=== PATIENT | male | born 1950 | race Caucasian/White ===

== ENCOUNTER 2022-04-12 01:07 | Day surgery (SDC) | payer OTHER, SELFPAY ==
[2022-04-01 14:27] VITALS: BMI 25.9
[2022-04-12 13:04] VITALS: BP 169/76; PULSE 88; RESP 18; TEMP 36.2; O2SAT 98
[2022-04-12] MEDS: LACTATED RINGERS 1,000 ML 150 ML IV CONT (13:07)
[2022-04-12 13:13] LABS: Glucose Point of Care 118 mg/dl (65-105)
--- NOTE | 2022-04-12 13:28 | PM.HPGS ---
History of Present Illness History of Present Illness Consent: Risks, benefits, and alternatives have been discussed and questions answered. Patient agrees to proceed with procedure. Chief complaint: Neoplasm Screening Narrative: Kana Garza is a 72 year old male here for first screening colonoscopy Review of Systems Constitutional: Constitutional: Denies headache(s) and Denies weakness Eyes: Eyes: Denies blurry vision ENT: Reports Normal hearing present, Denies headache(s) and Denies neck pain Cardiovascular: Cardiovascular: Denies chest pain and Denies dyspnea Respiratory: Respiratory: Denies dyspnea Gastrointestinal: Gastrointestinal: Reports no additional gastrointestinal complaints Genitourinary: Genitourinary: Denies dysuria Musculoskeletal: Musculoskeletal: Denies neck pain Integumentary/Breasts: Skin/Breast: Denies dry skin Neurologic: Reports Normal hearing present, Denies headache(s) and Denies weakness Psychiatric: Psychiatric: Denies anxiety Endocrine: Endocrine: Denies change in body appearance Hematologic/Lymphatic: Hematologic/Lymphatic: Denies easy bleeding Allergic/Immunologic: Allergic/Immunologic: Denies urticaria PMF Past Medical History Medical History (Updated 01/23/22 @ 08:45 by Oksana Vance NP) Colon cancer screening Diabetes Elevated fasting glucose Encounter to establish care Hyperlipidemia Hypertension Nocturia Family History Family History (Updated 01/15/22 @ 14:13 by Chloe Reaves MA) Mother Diabetes mellitus Sibling Diabetes mellitus Hypertension Social History Social History Smoking packs per day: 2 Smoking cigarettes per day: 40.0 Years smoked: 25 Smoking pack-years: 50.00 Smoking status: Former smoker Tobacco type: cigarettes Alcohol intake: current Drinks per week: 3 Alcohol use details: BEER Substance use: never Substance use type: does not use Living arrangements: alone Spiritual care concerns: No Meds Home Medications and Allergies Home Medications Medication Instructions Recorded Confirmed Type cholecalciferol (vitamin D3) 1 pill PO DAILY 01/15/22 04/12/22 History omega 9-aaa-qgd-fish oil 1,000 mg 1 cap PO DAILY 01/15/22 04/12/22 History (120 mg-180 mg) capsule (Fish Oil) probiotic 1 tab-cap BYMOUTH DAILY 01/15/22 04/12/22 History atorvastatin 10 mg tablet 10 mg PO DAILY #90 tabs 03/12/22 04/12/22 Rx lisinopril 20 mg tablet 20 mg PO DAILY #90 tabs 03/12/22 04/12/22 Rx metformin 500 mg tablet,extended 2,000 mg PO DAILY #360 tabs 03/12/22 04/12/22 Rx release 24 hr tamsulosin 0.4 mg capsule (Flomax) 0.4 mg PO QHS #90 caps 03/12/22 04/12/22 Rx Allergies Allergy/AdvReac Type Severity Reaction Status Date / Time No Known Allergies Allergy Verified 04/12/22 13:02 Vital Signs Vital Signs - 24 hr 04/12/22 13:04 Temperature 97.2 F L Pulse Rate 88 Respiratory Rate 18 Blood Pressure 169/76 H Pulse Oximetry 98 Oxygen Delivery Room Air Exam Const: General: comfortable and no acute distress HENMT: Face/Nose/Sinus: Normal nares present Eyes: General: appearance normal, both eyes and all related structures Neck: Neck: no JVD Resp: Auscultation: clear to auscultation bilaterally Cardio: Rate: regular rate Rhythm: regular rhythm GI: Inspection: non-distended GI Palp: Yes Soft to palpation Skin: General skin exam: normal color Neuro: General: gait normal Speech: normal speech Extrem: General: normal to inspection Psych: Mental Status: mental status grossly normal Assessment and Plan Assessment and plan (1) Colon cancer screening: Code(s): Z12.11 - Encounter for screening for malignant neoplasm of colon Status: Acute Assessment and Plan: colonoscopy
--- NOTE | 2022-04-12 13:29 | WPDANESEPPF ---
Anes - Initial Pre Proc Eval Procedure: Operation Date: 04/12/22 14:15 Proposed Procedures p Screening Colonoscopy - Tello Florez MD Date/Time: 04/12/22 13:29 Surgeon: Tello Florez MD Pre Op Diagnosis: Neoplasm Screening Patient Data Age: 72 Gender: M Height: 1.78 m Weight: 78.8 kg Last Vital Signs Temp 97.2 F L 04/12/22 13:04 Pulse 88 04/12/22 13:04 Resp 18 04/12/22 13:04 BP 169/76 H 04/12/22 13:04 Pulse Ox 98 04/12/22 13:04 O2 Del Method Room Air 04/12/22 13:04 Allergies Allergy/AdvReac Type Severity Reaction Status Date / Time No Known Allergies Allergy Verified 04/12/22 13:02 Home Medications Medication Instructions Recorded Confirmed Type cholecalciferol (vitamin D3) 1 pill PO DAILY 01/15/22 04/12/22 History omega 3-frj-xvf-fish oil 1,000 mg 1 cap PO DAILY 01/15/22 04/12/22 History (120 mg-180 mg) capsule (Fish Oil) probiotic 1 tab-cap BYMOUTH DAILY 01/15/22 04/12/22 History atorvastatin 10 mg tablet 10 mg PO DAILY #90 tabs 03/12/22 04/12/22 Rx lisinopril 20 mg tablet 20 mg PO DAILY #90 tabs 03/12/22 04/12/22 Rx metformin 500 mg tablet,extended 2,000 mg PO DAILY #360 tabs 03/12/22 04/12/22 Rx release 24 hr tamsulosin 0.4 mg capsule (Flomax) 0.4 mg PO QHS #90 caps 03/12/22 04/12/22 Rx Laboratory Tests 04/12/22 13:07 POC Capillary Glucose 118 mg/dl H mg/dl (65-105) Patient hx anesthesia problems: none Family hx anesthesia problems: none Results Review: All pre-operative results and documents have been reviewed as part of the pre-operative evaluation. [facility] Past Medical History Medical History (Updated 01/23/22 @ 08:45 by Oksana Vance NP) Colon cancer screening Diabetes Elevated fasting glucose Encounter to establish care Hyperlipidemia Hypertension Nocturia Family History Family History (Updated 01/15/22 @ 14:13 by Chloe Reaves MA) Mother Diabetes mellitus Sibling Diabetes mellitus Hypertension Social History Social History Smoking packs per day: 2 Smoking cigarettes per day: 40.0 Years smoked: 25 Smoking pack-years: 50.00 Smoking status: Former smoker Tobacco type: cigarettes Alcohol intake: current Drinks per week: 3 Alcohol use details: BEER Substance use: never Substance use type: does not use Living arrangements: alone Spiritual care concerns: No Anes - Eval Final PreProcedure Day of Procedure 04/12/22 13:29 Patient weight: normal Heart: regular rate and rhythm Lungs: clear to auscultation Airway: Mallampati scale class II Neurological: alert and oriented Last oral intake: >/= 8 hours ASA classification: III Emergent: no Anesthetic plan: proceed Anesthesia type and monitoring: general GIVS and standard monitoring Results Review: All pre-operative results and documents have been reviewed as part of the pre-operative evaluation. Informed Consent: The patient's anesthetic plan and its attendant risks and benefits were discussed with the patient/family/POA. Questions were solicited and answers provided to the satisfaction of the patient/family/POA.
[2022-04-12 14:03] VITALS: BP 134/78; PULSE 71; RESP 14; O2SAT 96
[2022-04-12 14:13] VITALS: BP 160/81; PULSE 68; RESP 20; O2SAT 96
[2022-04-12 14:23] VITALS: BP 168/85; PULSE 64; RESP 16; O2SAT 98
== END 2022-04-12 14:32 | disposition home or self-care (01) ==
PROVIDERS: PCP Nurse Practitioner Family; Visit Provider Internal Medicine Gastroenterology
PROC: 0DJD8ZZ Inspection of Lower Intestinal Tract, Via Natural or Artificial Opening Endoscopic (ICD-10-PCS; CPT 45378; principal; 2022-04-12 14:15)
DX: Z12.11 Encounter for screening for malignant neoplasm of colon (principal); D12.2 Benign neoplasm of ascending colon; K64.8 Other hemorrhoids; E11.9 Type 2 diabetes mellitus without complications; E78.5 Hyperlipidemia, unspecified; I10 Essential (primary) hypertension; Z87.891 Personal history of nicotine dependence; Z79.84 Long term (current) use of oral hypoglycemic drugs
CPT/HCPCS: 45385; 45381; 82948; 88305; J2001; J2704; J7120

== ENCOUNTER 2022-06-04 10:43 | Emergency (ER) | payer OTHER, SELFPAY ==
[2022-06-04 10:47] VITALS: BP 159/93; PULSE 99; RESP 20; TEMP 36.4; O2SAT 100
--- NOTE | 2022-06-04 14:15 | ED.GENADULT ---
HPI - General Adult General Chief complaint: Unspecified Stated complaint: ?CO poisoning Time Seen by Provider: 06/04/22 14:01 History of Present Illness HPI narrative: 72-year-old male presented to the emergency department for evaluation due to finding a crack in his heat exchanger and concern for carbon oxide exposure. Patient was told that he needed to be evaluated. Patient states he has been having some decreased appetite nausea over the course of the last week. Patient states he does have follow-up scheduled with primary care physician next week. Patient does have history of high cholesterol hypertension and diabetes. Related Data Home Medications Medication Instructions Recorded Confirmed cholecalciferol (vitamin D3) 1 pill PO DAILY 01/15/22 04/12/22 omega 8-xuq-ycb-fish oil 1,000 mg 1 cap PO DAILY 01/15/22 04/12/22 (120 mg-180 mg) capsule (Fish Oil) probiotic 1 tab-cap BYMOUTH DAILY 01/15/22 04/12/22 Allergies Allergy/AdvReac Type Severity Reaction Status Date / Time No Known Allergies Allergy Verified 04/12/22 13:02 Review of Systems Review of Systems: CONSTITUTIONAL: Decreased p.o. intake EYES: Denies visual changes, redness, or discharge. ENT: Denies rhinorrhea, congestion, sore throat, or otalgia. CARDIOVASCULAR: Denies chest pain, palpitations, or edema. RESPIRATORY: Denies cough or dyspnea. GASTROINTESTINAL: Denies abdominal pain, nausea, vomiting, or diarrhea. GENITOURINARY: Denies dysuria or hematuria. SKIN: Denies rash or itching. MUSCULOSKELETAL: Denies back pain, joint pain, or myalgia. NEUROLOGIC: Denies headache, numbness, or weakness. [facility] Past Medical History Medical History (Updated 06/04/22 @ 14:19 by Tor Clayton MD) Colon cancer screening Diabetes Elevated fasting glucose Encounter to establish care Hyperlipidemia Hypertension Nocturia Family History Family History (Updated 01/15/22 @ 14:13 by Chloe Reaves MA) Mother Diabetes mellitus Sibling Diabetes mellitus Hypertension Social History Social History (Reviewed 03/12/22 @ 09:55 by Jeniffer Em [facility]) Smoking packs per day: 2 Smoking cigarettes per day: 40.0 Years smoked: 25 Smoking pack-years: 50.00 Smoking status: Former smoker Tobacco type: cigarettes Alcohol intake: current Drinks per week: 3 Alcohol use details: BEER Substance use: never Substance use type: does not use Spiritual care concerns: No Exam Narrative: APPEARANCE: Well appearing, no pain, no distress, well-nourished. HEAD: normocephalic, atraumatic. EYES: PERRLA/EOMI, conjunctivae clear. NOSE: Normal no drainage NECK: Supple. No adenopathy, no masses. RESPIRATORY: Airway patent, respirations nonlabored. Clear to auscultation bilaterally, no rales, rhonchi, wheezing. CARDIOVASCULAR: Regular rate and rhythm without murmurs rubs or gallops. ABDOMINAL: Soft, nontender, nondistended, normal bowel sounds MUSCULOSKELETAL: Moves all extremities. Strength/ROM intact, No edema, No calf tenderness. NEURO: Alert. Cranial nerves II through XII intact. Grossly intact SKIN: Warm, dry. Normal Color PSYCHIATRIC: Normal affect/mood. Course Course Emergency Course: Patient CO was 4. Patient's pulse ox was 99. Patient denies any complaints at this time. Patient was encouraged to continue to have follow-up with his primary care physician. All questions and concerns were addressed. Vital Signs Vital signs: Vital Signs Temperature 97.6 F 06/04/22 10:47 Pulse Rate 99 06/04/22 10:47 Respiratory Rate 20 06/04/22 10:47 Blood Pressure 159/93 H 06/04/22 10:47 Pulse Oximetry 100 06/04/22 10:47 Oxygen Delivery Room Air 06/04/22 10:47 Temperature 97.6 F 06/04/22 10:47 Pulse Rate 99 06/04/22 10:47 Respiratory Rate 20 06/04/22 10:47 Blood Pressure 159/93 H 06/04/22 10:47 Pulse Oximetry 100 06/04/22 10:47 Oxygen Delivery Room Air 06/04/22 10:47 Medical Decision Making Vital
== END 2022-06-04 14:24 | disposition home or self-care (01) ==
PROVIDERS: Emergency Provider Emergency Medicine; PCP Nurse Practitioner Family
DX: Z77.29 Contact with and (suspected) exposure to other hazardous substances (principal); E11.9 Type 2 diabetes mellitus without complications; E78.5 Hyperlipidemia, unspecified; I10 Essential (primary) hypertension; E78.00 Pure hypercholesterolemia, unspecified; Z79.84 Long term (current) use of oral hypoglycemic drugs
CPT/HCPCS: 99281

== ENCOUNTER 2023-09-08 08:23 | Outpatient (CLI) | payer OTHER, SELFPAY ==
[2023-09-08 09:08] LABS: Anion Gap 9 mmol/L (8-16); Blood Urea Nitrogen 14 mg/dL (9-20); Calcium 9.6 mg/dL (8.4-10.2); Carbon Dioxide 22 mmol/L (22-30); Chloride 106 mmol/L (98-107); Estimated Glomerular Filt Rate > 60; Glucose 138 mg/dL (65-110); Potassium 4.1 mmol/L (3.4-5.0); Sodium 137 mmol/L (137-145)
== END 2023-09-08 08:24 | disposition home or self-care (01) ==
LOC: ANHSURGERY 08:29
PROVIDERS: Anesthesiology; PCP Nurse Practitioner Family; Visit Provider Urology
DX: E11.9 Type 2 diabetes mellitus without complications (principal); Z01.818 Encounter for other preprocedural examination
CPT/HCPCS: 36415; 80048

== ENCOUNTER 2023-09-11 00:31 | Day surgery (SDC) | payer OTHER, SELFPAY ==
[2023-09-04 10:45] VITALS: BMI 24.5
--- NOTE | 2023-09-04 11:01 | PC.NURSE ---
Report to the Outpatient Waiting Room, entrance under the green pavilion located off [facility], at time __8:30AM on date ___09/11/23____. Planned Procedure Time: __10:30AM . Time changes happen often and if your time is changed the preop area will call you the afternoon before. - You and your visitor will be asked to self-screen and do not enter if you have any COVID symptoms. - A mask is optional within the hospital at this time. Patients may have clear liquids (water, carbonated beverages, clear teas, apple juice) until 3 hours prior to surgery with a maximum of 20 ounces. - No food from midnight until time of surgery. Take the following medications with a SIP of water the morning of surgery: AMLODIPINE DO NOT STOP ANY OF YOUR OTHER PRESCRIPTION MEDICATIONS PRIOR TO SURGERY ?EXCEPT THE FOLLOWING Medications to discontinue per physician ___HOLD ALL VITAMINS/SUPPLEMENTS 7 DAYS PRE-OP PER DR VARGAS Date to take last dose 09/03/23 Please no make-up, nail pitcairn islander, hairspray, perfume, deodorant, or body powder the day of surgery. No jewelry (including any body piercings) or valuables the day of surgery, leave them at home. Please take a shower or bath the night before, or the morning of, surgery with an antibacterial soap. Wear comfortable, loose fitting clothing. - Jewelry must be removed prior to entering the operating room. Rings and piercings that are not removed may be cut off. - The hospital will not accept responsibility for valuables. - Please leave all valuables, including medications, at home the day of surgery. If you are going home after surgery, a licensed bicycle taxi driver must drive you home. - NO public transportation without another adult if you receive anesthesia. - We recommend that an adult stay with you for 24 hours following discharge. - We also recommend that you do not drive, make important decision, drink alcoholic beverages, or take any drugs that were not prescribed by your health care provider for at least 24 hours after your discharge time. Follow any additional instructions given to you from your surgeon. If you or anyone in your household have experienced Covid symptoms in the past week, please notify your surgeon or the nurse liaison at the phone number below for possible testing. Telephone instructions given to ____PATIENT and asked if any additional questions and then verbalized understanding. Patient advised to call surgeon office or pre surgery nurse liaison [phone] if any additional questions.
--- NOTE | 2023-09-09 06:45 | PM.HPGS ---
History of Present Illness History of Present Illness Consent: Risks, benefits, and alternatives have been discussed and questions answered. Patient agrees to proceed with procedure. Chief complaint: elevated PSA Narrative: Kana Garza is a 73 year old male his recent been found to have PSA progression with most recent PSA of 7.03 in June 2023. Prostate MRI reveals a PI-RADS 5 lesion in the left anterior transition zone at the mid prostate. After discussion of options he is elected for Uronav biopsy. Aware of the risks of this including, but not limited to, hematuria, rectal bleeding and postoperative infection Review of Systems Review of Systems: All systems reviewed & are unremarkable except as noted in HPI and below PMFSH Past Medical History Medical History (Updated 08/12/23 @ 08:29 by Oksana Vance NP) Acute sinusitis B12 deficiency Colon cancer screening Diabetes Diabetic peripheral neuropathy Elevated fasting glucose Elevated PSA Encounter to establish care Family hx of prostate cancer History of colon polyps Hyperlipidemia Hypertension Nocturia Family History Family History Mother Diabetes mellitus Sibling Diabetes mellitus Hypertension Social History Social History Smoking packs per day: 2 Smoking cigarettes per day: 40.0 Years smoked: 20 Smoking pack-years: 40.00 Smoking status: Former smoker Tobacco type: cigarettes Smoking end date: 06/30/95 Alcohol intake: current Drinks per week: 4 Alcohol use details: 6/WEEK IN SUMMER, 3/MONTH IN WINTER Substance use: never Substance use type: does not use Lack of Transportation: No Lack of Food: Never True Current Housing: I Have Housing Concerned About Future Housing: No Difficulty Paying Gas/Electric Bills: No Difficulty Paying for Meds: No Currently Unemployed: No Education: High School Diploma/GED Difficulty w/ Childcare or Family Care: No Living arrangements: alone Spiritual care concerns: No Meds Home Medications and Allergies Home Medications Medication Instructions Recorded Confirmed Type tamsulosin 0.4 mg capsule (Flomax) 0.4 mg PO QHS #90 caps 03/31/23 09/04/23 Rx atorvastatin 10 mg tablet 10 mg PO DAILY #90 tabs 04/18/23 09/04/23 Rx metformin 500 mg tablet,extended 1,500 mg PO DAILY #360 tabs 07/17/23 09/04/23 Rx release 24 hr fluticasone propionate 50 1 spray intranasal BID #16 grams 08/12/23 09/04/23 Rx mcg/actuation nasal spray,suspension (Flonase Allergy Relief) amlodipine 10 mg tablet 10 mg PO QAM 09/04/23 09/04/23 History cholecalciferol (vitamin D3) 50 50 mcg PO DAILY 09/04/23 09/04/23 History mcg (2,000 unit) tablet cyanocobalamin (vitamin B-12) 2,500 mcg PO BID 09/04/23 09/04/23 History 2,500 mcg tablet irbesartan 300 mg tablet 300 mg PO QAM 09/04/23 09/04/23 History lactobacillus combination no.4 3 3,000 mmu cells PO DAILY 09/04/23 09/04/23 History billion cell capsule (Probiotic) omega 2-cdn-qia-fish oil 1,000 mg 1 cap PO DAILY 09/04/23 09/04/23 History (120 mg-180 mg) capsule (Fish Oil) Allergies Allergy/AdvReac Type Severity Reaction Status Date / Time hydrochlorothiazide AdvReac STOMACH Verified 09/04/23 10:41 ACHE Exam Const: General: no acute distress Resp: Effort & Inspection: normal respiratory effort GI: Inspection: non-distended GI Palp: No abdominal tenderness and No Guarding due to palpation present (GI) Auscultation: normal bowel sounds Assessment and Plan Assessment and plan (1) Elevated PSA: Code(s): R97.20 - Elevated prostate specific antigen [PSA] Status: Acute Assessment and Plan: Uronav biopsy of prostate
--- NOTE | 2023-09-10 10:38 | WPDANESEPPF ---
Anes - Initial Pre Proc Eval Procedure: Operation Date: 09/11/23 10:30 Proposed Procedures p Trans Rectal Ultrasound Fusion Guided Prostate Biopsy - Jamari Aguilar MD Date/Time: 09/10/23 10:38 Surgeon: Jamari Aguilar MD Pre Op Diagnosis: elevated PSA Patient Data Age: 73 Gender: M Height: 1.8 m Weight: 80 kg Allergies Allergy/AdvReac Type Severity Reaction Status Date / Time hydrochlorothiazide AdvReac STOMACH Verified 09/04/23 10:41 ACHE Home Medications Medication Instructions Recorded Confirmed Type tamsulosin 0.4 mg capsule (Flomax) 0.4 mg PO QHS #90 caps 03/31/23 09/04/23 Rx atorvastatin 10 mg tablet 10 mg PO DAILY #90 tabs 04/18/23 09/04/23 Rx metformin 500 mg tablet,extended 1,500 mg PO DAILY #360 tabs 07/17/23 09/04/23 Rx release 24 hr fluticasone propionate 50 1 spray intranasal BID #16 grams 08/12/23 09/04/23 Rx mcg/actuation nasal spray,suspension (Flonase Allergy Relief) amlodipine 10 mg tablet 10 mg PO QAM 09/04/23 09/04/23 History cholecalciferol (vitamin D3) 50 50 mcg PO DAILY 09/04/23 09/04/23 History mcg (2,000 unit) tablet cyanocobalamin (vitamin B-12) 2,500 mcg PO BID 09/04/23 09/04/23 History 2,500 mcg tablet irbesartan 300 mg tablet 300 mg PO QAM 09/04/23 09/04/23 History lactobacillus combination no.4 3 3,000 mmu cells PO DAILY 09/04/23 09/04/23 History billion cell capsule (Probiotic) omega 2-ugl-bba-fish oil 1,000 mg 1 cap PO DAILY 09/04/23 09/04/23 History (120 mg-180 mg) capsule (Fish Oil) Patient hx anesthesia problems: none Family hx anesthesia problems: none Results Review: All pre-operative results and documents have been reviewed as part of the pre-operative evaluation. [facility] Past Medical History Medical History (Updated 08/12/23 @ 08:29 by Oksana Vance NP) Acute sinusitis B12 deficiency Colon cancer screening Diabetes Diabetic peripheral neuropathy Elevated fasting glucose Elevated PSA Encounter to establish care Family hx of prostate cancer History of colon polyps Hyperlipidemia Hypertension Nocturia Family History Family History Mother Diabetes mellitus Sibling Diabetes mellitus Hypertension Social History Social History Smoking packs per day: 2 Smoking cigarettes per day: 40.0 Years smoked: 20 Smoking pack-years: 40.00 Smoking status: Former smoker Tobacco type: cigarettes Smoking end date: 06/30/95 Alcohol intake: current Drinks per week: 4 Alcohol use details: 6/WEEK IN SUMMER, 3/MONTH IN WINTER Substance use: never Substance use type: does not use Lack of Transportation: No Lack of Food: Never True Current Housing: I Have Housing Concerned About Future Housing: No Difficulty Paying Gas/Electric Bills: No Difficulty Paying for Meds: No Currently Unemployed: No Education: High School Diploma/GED Difficulty w/ Childcare or Family Care: No Living arrangements: alone Spiritual care concerns: No Anes - Eval Final PreProcedure Day of Procedure 09/10/23 10:38 Patient weight: normal Heart: regular rate and rhythm Lungs: clear to auscultation and normal air movement Airway: Mallampati scale class III and special considerations poor dentition Neurological: alert and oriented Last oral intake: >/= 8 hours ASA classification: III Emergent: no Anesthetic plan: proceed Anesthesia type and monitoring: general GIVS and standard monitoring Results Review: All pre-operative results and documents have been reviewed as part of the pre-operative evaluation. Informed Consent: The patient's anesthetic plan and its attendant risks and benefits were discussed with the patient/family/POA. Questions were solicited and answers provided to the satisfaction of the patient/family/POA.
--- NOTE | 2023-09-11 06:21 | WPDHPUPDATE1 ---
History and Physical Update Update Date/Time: 09/11/23 06:21 History and Physical has been reviewed, including an updated exam of the patient. There are NO changes in the patient's condition. Risks, benefits, and alternatives have been discussed and questions answered. Patient agrees to proceed with procedure.
[2023-09-11 09:00] VITALS: BP 152/65; PULSE 90; RESP 16; TEMP 37.1; O2SAT 99
[2023-09-11] MEDS: LACTATED RINGERS 1,000 ML 30 ML IV CONT (09:00)
[2023-09-11 09:26] LABS: Glucose Point of Care 135 mg/dl (65-105)
[2023-09-11] MEDS: ceFAZolin 2 GM/D5W 50 ML 2 GM/50 ML BAG IVPB (10:52)
--- NOTE | 2023-09-11 11:06 | W.PM.PROC2 ---
Procedure Note - Detailed Date of Procedure 09/11/23 Pre-op Diagnosis elevated PSA Post-op Diagnosis Same Procedure Performed Uronav fusion biopsy of prostate Surgeon Jamari Aguilar MD Anesthesia General Description of Procedure The patient was place in a left lateral position after administration of systemic sedation by the anesthesia department in preperation of fusion biopsy using outside MRI images. Transrectal ultrasound of the prostate is undertaken at 6.0Hz. The prostate capsule is intact and the tissue has a normal echo texture. There is a small median lobe and minimal PVR in the bladder. The seminal vesicles have a normal appearance ultrasonically. The prostate measured 40gm in size. Using ultrasound guidance a total of 12 biopsy cores are obtained. The ultrasound probe was removed and the patient was taken to the recovery room in good condition. Drains No Packing No Pathology None sent
[2023-09-11 11:07] VITALS: BP 145/76; PULSE 102; RESP 14; O2SAT 98
[2023-09-11 11:22] LABS: Glucose Point of Care 121 mg/dl (65-105)
[2023-09-11 11:35] VITALS: BP 119/57; PULSE 70; RESP 14; O2SAT 97
[2023-09-11 12:05] VITALS: BP 120/58; PULSE 67; RESP 14
== END 2023-09-11 12:15 | disposition home or self-care (01) ==
PROVIDERS: PCP Nurse Practitioner Family; Visit Provider Urology
PROC: (CPT 55700; principal; 2023-09-11 10:30)
DX: C61 Malignant neoplasm of prostate (principal); I10 Essential (primary) hypertension; E78.5 Hyperlipidemia, unspecified; E11.42 Type 2 diabetes mellitus with diabetic polyneuropathy; E53.8 Deficiency of other specified B group vitamins; Z87.891 Personal history of nicotine dependence; Z86.010 Personal history of colon polyps; Z80.42 Family history of malignant neoplasm of prostate; Z79.84 Long term (current) use of oral hypoglycemic drugs
CPT/HCPCS: 76872; 55700; 36415; 80048; 82948; 88342; G0416; J0690; J2405; J2704; J3010; J7120

== ENCOUNTER 2024-10-05 00:25 | Day surgery (SDC) | payer OTHER, SELFPAY ==
[2024-09-28 08:20] VITALS: BMI 25.8
[2024-10-05 08:19] VITALS: BP 169/71; PULSE 93; RESP 20; TEMP 36; O2SAT 100; BMI 26.2
[2024-10-05 08:32] LABS: Glucose Point of Care 138 mg/dl (65-105)
[2024-10-05] MEDS: LACTATED RINGERS 1,000 ML 150 ML IV CONT (08:32)
[2024-10-05 08:45] VITALS: BP 177/72
--- NOTE | 2024-10-05 09:03 | P.HP_ITS ---
History of Present Illness History of Present Illness Consent: Risks, benefits, and alternatives have been discussed and questions answered. Patient agrees to proceed with procedure. Chief complaint: hx of colon polyps Narrative: Kana Garza is a 74 year old male with colon polyp in 2021 Review of Systems Review of Systems: All systems reviewed & are unremarkable except as noted in HPI and below PMFSH Past Medical History Medical History (Updated 07/14/24 @ 08:54 by Oksana Vance NP) Insomnia Prostate cancer Acute sinusitis Family hx of prostate cancer History of colon polyps Elevated PSA B12 deficiency Diabetic peripheral neuropathy Diabetes Elevated fasting glucose Colon cancer screening Encounter to establish care Hypertension Nocturia Hyperlipidemia Family History Family History Mother Diabetes mellitus Sibling Diabetes mellitus Hypertension Social History Social History Smoking packs per day: 2 Smoking cigarettes per day: 40.0 Years smoked: 30 Smoking pack-years: 60.00 Smoking status: Former smoker Tobacco type: cigarettes Smoking end date: 06/30/95 Alcohol intake: current Drinks per week: 2 Alcohol use details: 6/WEEK IN SUMMER, 3/MONTH IN WINTER Substance use: never Substance use type: does not use Lack of Transportation: No Lack of Food: Never True Current Housing: I Have Housing Concerned About Future Housing: No Difficulty Paying Gas/Electric Bills: No Difficulty Paying for Meds: No Currently Unemployed: No Education: High School Diploma/GED Difficulty w/ Childcare or Family Care: No Living arrangements: alone Spiritual care concerns: No Meds Home Medications and Allergies Home Medications ?Medication ?Instructions ?Recorded ?Confirmed ?Type metformin 500 mg tablet,extended 1,500 mg (3 x 500 mg) PO DAILY 07/17/23 10/05/24 Rx release 24 hr #360 tabs fluticasone propionate 50 1 spray intranasal BID #16 grams 08/12/23 10/05/24 Rx mcg/actuation nasal spray,suspension (Flonase Allergy Relief) cholecalciferol (vitamin D3) 50 50 mcg PO DAILY 09/04/23 10/05/24 History mcg (2,000 unit) tablet lactobacillus combination no.4 3 3,000 mmu cells PO DAILY 09/04/23 10/05/24 History billion cell capsule (Probiotic) omega 7-kmo-hcs-fish oil 1,000 mg 1 cap PO DAILY 09/04/23 10/05/24 History (120 mg-180 mg) capsule (Fish Oil) tamsulosin 0.4 mg capsule (Flomax) 0.4 mg PO QHS #90 caps 01/05/24 07/14/24 Rx vitamin B complex 1 tablet PO DAILY 01/07/24 10/05/24 History atorvastatin 10 mg tablet 10 mg PO DAILY #90 tabs 03/31/24 10/05/24 Rx amlodipine 10 mg tablet 10 mg PO QAM #90 tabs 07/06/24 10/05/24 Rx irbesartan 300 mg tablet 300 mg PO QAM #90 tabs 10/04/24 10/05/24 Rx Allergies Allergy/AdvReac Type Severity Reaction Status Date / Time hydrochlorothiazide AdvReac STOMACH Verified 10/05/24 08:16 ACHE Vital Signs Vital Signs - 24 hr 10/05/24 08:19 Temperature 96.8 F L Pulse Rate 93 Respiratory Rate 20 Blood Pressure 169/71 H Pulse Oximetry 100 Oxygen Delivery Room Air Exam Const: General: comfortable and no acute distress HENMT: Face/Nose/Sinus: Normal nares present Eyes: General: appearance normal, both eyes and all related structures Neck: Neck: no JVD Resp: Auscultation: clear to auscultation bilaterally Cardio: Rate: regular rate Rhythm: regular rhythm GI: Inspection: non-distended GI Palp: Yes Soft to palpation Skin: General skin exam: normal color Neuro: Speech: normal speech Extrem: General: normal to inspection Psych: Mental Status: mental status grossly normal Assessment and Plan Assessment and plan (1) History of colon polyps: Code(s): Z86.010 - Personal history of colon polyps Status: Acute Assessment and Plan: colonoscopy
--- NOTE | 2024-10-05 09:06 | WPDANESEPPF ---
Anes - Initial Pre Proc Eval Procedure: Operation Date: 10/05/24 09:30 Proposed Procedures p Colonoscopy - Tello Florez MD Date/Time: 10/05/24 09:06 Surgeon: Tello Florez MD Pre Op Diagnosis: hx of colon polyps Patient Data Age: 74 Gender: M Height: 1.78 m Weight: 83 kg Last Vital Signs Temp 36.0 C L 10/05/24 08:19 Pulse 93 10/05/24 08:19 Resp 20 10/05/24 08:19 BP 169/71 H 10/05/24 08:19 Pulse Ox 100 10/05/24 08:19 O2 Del Method Room Air 10/05/24 08:19 Allergies Allergy/AdvReac Type Severity Reaction Status Date / Time hydrochlorothiazide AdvReac STOMACH Verified 10/05/24 08:16 ACHE Home Medications ?Medication ?Instructions ?Recorded ?Confirmed ?Type metformin 500 mg tablet,extended 1,500 mg (3 x 500 mg) PO DAILY 07/17/23 10/05/24 Rx release 24 hr #360 tabs fluticasone propionate 50 1 spray intranasal BID #16 grams 08/12/23 10/05/24 Rx mcg/actuation nasal spray,suspension (Flonase Allergy Relief) cholecalciferol (vitamin D3) 50 50 mcg PO DAILY 09/04/23 10/05/24 History mcg (2,000 unit) tablet lactobacillus combination no.4 3 3,000 mmu cells PO DAILY 09/04/23 10/05/24 History billion cell capsule (Probiotic) omega 4-hzf-eim-fish oil 1,000 mg 1 cap PO DAILY 09/04/23 10/05/24 History (120 mg-180 mg) capsule (Fish Oil) tamsulosin 0.4 mg capsule (Flomax) 0.4 mg PO QHS #90 caps 01/05/24 07/14/24 Rx vitamin B complex 1 tablet PO DAILY 01/07/24 10/05/24 History atorvastatin 10 mg tablet 10 mg PO DAILY #90 tabs 03/31/24 10/05/24 Rx amlodipine 10 mg tablet 10 mg PO QAM #90 tabs 07/06/24 10/05/24 Rx irbesartan 300 mg tablet 300 mg PO QAM #90 tabs 10/04/24 10/05/24 Rx Laboratory Tests 10/05/24 08:29 POC Capillary Glucose 138 H mg/dl (65-105) Patient hx anesthesia problems: none Family hx anesthesia problems: none Results Review: All pre-operative results and documents have been reviewed as part of the pre-operative evaluation. [facility] Past Medical History Medical History Insomnia Prostate cancer Acute sinusitis Family hx of prostate cancer History of colon polyps Elevated PSA B12 deficiency Diabetic peripheral neuropathy Diabetes Elevated fasting glucose Colon cancer screening Encounter to establish care Hypertension Nocturia Hyperlipidemia Family History Family History Mother Diabetes mellitus Sibling Diabetes mellitus Hypertension Social History Social History Smoking packs per day: 2 Smoking cigarettes per day: 40.0 Years smoked: 30 Smoking pack-years: 60.00 Smoking status: Former smoker Tobacco type: cigarettes Smoking end date: 06/30/95 Alcohol intake: current Drinks per week: 2 Alcohol use details: 6/WEEK IN SUMMER, 3/MONTH IN WINTER Substance use: never Substance use type: does not use Lack of Transportation: No Lack of Food: Never True Current Housing: I Have Housing Concerned About Future Housing: No Difficulty Paying Gas/Electric Bills: No Difficulty Paying for Meds: No Currently Unemployed: No Education: High School Diploma/GED Difficulty w/ Childcare or Family Care: No Living arrangements: alone Spiritual care concerns: No Anes - Eval Final PreProcedure Day of Procedure 10/05/24 09:06 Patient weight: overweight Heart: regular rate and rhythm Lungs: decreased breath sounds Airway: Mallampati scale class II Neurological: alert and oriented Last oral intake: >/= 8 hours ASA classification: III Emergent: no Anesthetic plan: proceed Anesthesia type and monitoring: general GIVS and standard monitoring Results Review: All pre-operative results and documents have been reviewed as part of the pre-operative evaluation. Informed Consent: The patient's anesthetic plan and its attendant risks and benefits were discussed with the patient/family/POA. Questions were solicited and answers provided to the satisfaction of the patient/family/POA.
[2024-10-05 09:22] VITALS: BP 177/72; PULSE 82; RESP 15; O2SAT 97
[2024-10-05 09:32] VITALS: BP 126/68; PULSE 72; RESP 17; O2SAT 96
[2024-10-05 09:42] VITALS: BP 144/68; PULSE 71; RESP 19; O2SAT 98
== END 2024-10-05 09:54 | disposition home or self-care (01) ==
PROVIDERS: PCP Nurse Practitioner Family; Referring Provider Nurse Practitioner Family; Visit Provider Internal Medicine Gastroenterology
PROC: 0DJD8ZZ Inspection of Lower Intestinal Tract, Via Natural or Artificial Opening Endoscopic (ICD-10-PCS; CPT 45378; principal; 2024-10-05 09:30)
DX: Z12.11 Encounter for screening for malignant neoplasm of colon (principal); K64.8 Other hemorrhoids; I10 Essential (primary) hypertension; E78.5 Hyperlipidemia, unspecified; E53.8 Deficiency of other specified B group vitamins; E11.42 Type 2 diabetes mellitus with diabetic polyneuropathy; G47.00 Insomnia, unspecified; Z79.84 Long term (current) use of oral hypoglycemic drugs; Z86.0100 Personal history of colon polyps, unspecified; Z85.46 Personal history of malignant neoplasm of prostate; Z87.891 Personal history of nicotine dependence; Z80.42 Family history of malignant neoplasm of prostate
CPT/HCPCS: G0105; 82948; J2704; J7120